=== PATIENT | female | born 1955 | race African-American/Black ===

== ENCOUNTER 2017-10-13 19:00 | Emergency (ER) | payer BC, OTHER ==
--- NOTE | 2017-10-13 19:48 | ER Document Report ---
HPI - HPI Patient complains to provider of: left face rash Onset: Last week Onset/Duration: Gradual Pain Level: 2 Context: 62 yo female scratched left cheek at work on sign, used antibiotic ointment, started to itch and swell. Went to urgent care, changed to bacitracin zinc and it got much worse with itch and swelling. Did scratch it at night. No fever. Associated Symptoms: None Exacerbated by: Other - scratching Relieved by: Denies Similar symptoms previously: No Recently seen / treated by doctor: Yes - ROS ROS below otherwise negative: Yes Systems Reviewed and Negative: Yes All other systems reviewed and negative - REPRODUCTIVE Reproductive: DENIES: : Past Medical History - General Information source: Patient - Social History Smoking Status: Current Every Day Smoker Frequency of alcohol use: Occasional Drug Abuse: None Lives with: Family Family History: Reviewed & Not Pertinent Patient has suicidal ideation: No Patient has homicidal ideation: No - Medical History Medical History: Negative Renal/ Medical History: Denies: Hx Peritoneal Dialysis Surgical Hx: Negative - Immunizations Hx Diphtheria, Pertussis, Tetanus Vaccination: Yes - 03/31/12 Vertical Provider Document - CONSTITUTIONAL Agree With Documented VS: Yes Exam Limitations: No Limitations General Appearance: No Apparent Distress - INFECTION CONTROL TRAVEL OUTSIDE OF THE [place] IN LAST 30 DAYS: No - HEENT HEENT: Normocephalic Notes: left cheek swelling, pink, tiny vesicular, weeping rash, itch more than hurt. No nodes. Impetigo versus allergic contact dermatitis. - NECK Neck: Supple. negative: Lymphadenopathy-Left, Lymphadenopathy-Right - RESPIRATORY Respiratory: Breath Sounds Normal, No Respiratory Distress - CARDIOVASCULAR Cardiovascular: Regular Rate, Regular Rhythm - MUSCULOSKELETAL/EXTREMETIES Musculoskeletal/Extremeties: MAEW - NEURO Level of Consciousness: Awake, Alert - DERM Integumentary: Warm, Dry, Rash - see above Course - Vital Signs Vital signs: Temp Pulse Resp BP Pulse Ox 98.7 F 87 18 118/71 100 10/13/17 19:21 10/13/17 19:21 10/13/17 19:21 10/13/17 19:21 10/13/17 19:21 Discharge - Discharge Clinical Impression: Impetigo Contact dermatitis Qualifiers: Contact dermatitis type: allergic Contact dermatitis trigger: other chemical product Qualified Code(s): L23.5 - Allergic contact dermatitis due to other chemical products Condition: Good Disposition: HOME, SELF-CARE Instructions: Contact Dermatitis ([facility]), Cephalexin ([facility]), Corticosteroid Medication ([facility]), Use of Diphenhydramine, Impetigo ([facility]) Additional Instructions: no lotions or creams on skin prednisone for inflmamation and allergy keflex for skin infection to er if worse Prescriptions: Cephalexin Monohydrate [Keflex 500 mg Capsule] 500 mg PO QID #28 capsule Prednisone [Deltasone 10 mg Tablet] 10 mg PO ASDIR PRN #21 tablet PRN Reason: Forms: Return to Work
[2017-10-13] MEDS ORDERED: CEPHALEXIN 500 MG CAPSULE PO ONE (20:05)
[2017-10-13] MEDS ORDERED: PREDNISONE 20 MG TABLET PO ONE (20:05)
[2017-10-13 20:32] VITALS: BP 124/78
== END 2017-10-13 20:28 | disposition home or self-care (01) ==
LOC: ER 19:00
DX: L01.00 Impetigo, unspecified (principal); L23.5 Allergic contact dermatitis due to other chemical products; F17.200 Nicotine dependence, unspecified, uncomplicated
CPT/HCPCS: 99283; J7512

== ENCOUNTER 2020-06-01 08:15 | Emergency (ER) | payer MEDICARE, OTHER ==
[2020-06-01] MEDS ORDERED: PREDNISONE 20 MG TABLET PO ONE (09:43)
[2020-06-01 10:11] VITALS: BP 155/86
--- NOTE | 2020-06-03 08:17 | ER Document Report ---
Entered by SHUBHAM KINNEY SCRIBE 06/01/20912 Acting as scribe for:BHAVIK LOVETT MD ED General - General Chief Complaint: Rash Stated Complaint: RASH Time Seen by Provider: 06/01/20 09:10 Primary Care Provider: ANALIA NAVARRO NP [Primary Care Provider] - Follow up as needed Mode of Arrival: Ambulatory Information source: Patient Notes: This 65 year old female patient presents to the emergency department today with complaints of a diffuse dry scaly rash since the middle of April. Patient reports she was outside cutting grass which she has done for years, she began sweating profusely despite it not being hot outside. Patient reports that she went inside to cool off, jumped in the shower, and as soon as the water hit her skin and "burned". Patient reports that she had to pat her skin dry as the towel irritated the skin. Patient went to an urgent care on 05/03 and was started on a prednisone 60 mg for 3 days, 40 mg for 3 days, and 20 mg for 3 days. The rash has gotten worse since onset but did improve on the steroids. She has an appointment TRAVEL OUTSIDE OF THE [place] IN LAST 30 DAYS: No - Related Data Allergies/Adverse Reactions: No Known Allergies Allergy (Verified 10/13/17 19:02) Past Medical History - General Information source: Patient - Social History Smoking Status: Smoker,Current Status Unk Frequency of alcohol use: None Drug Abuse: None Lives with: Family Family History: Reviewed & Not Pertinent GI Medical History: Reports: Hx Ulcer Surgical Hx: Negative - Immunizations Hx Diphtheria, Pertussis, Tetanus Vaccination: Yes - 03/31/12 Review of Systems - Review of Systems Constitutional: No symptoms reported EENT: No symptoms reported Cardiovascular: No symptoms reported Respiratory: No symptoms reported Gastrointestinal: No symptoms reported Genitourinary: No symptoms reported Female Genitourinary: No symptoms reported Musculoskeletal: No symptoms reported Skin: See HPI, Change in color, Dryness Hematologic/Lymphatic: No symptoms reported Neurological/Psychological: No symptoms reported -: Yes All other systems reviewed and negative Physical Exam - Vital signs Vitals: Temp Pulse Resp BP Pulse Ox 98.3 F 98 16 128/73 H 100 06/01/20 08:21 06/01/20 08:21 06/01/20 08:21 06/01/20 08:21 06/01/20 08:21 - Notes Notes: Physical Exam: General: Alert, appears well. HEENT: Normocephalic. Atraumatic. PERRL. Extraocular movements intact. Oropharynx clear. Neck: Supple. Non-tender. Respiratory: No respiratory distress. Clear and equal breath sounds bilaterally. Cardiovascular: Regular rate and rhythm. Abdominal: Normal Inspection. Non-tender. No distension. Normal Bowel Sounds. Back: No gross abnormalities. Extremities: Moves all four extremities. Upper extremities: Normal inspection. Normal ROM. Lower extremities: Normal inspection. No edema. Normal ROM. Neurological: Normal cognition. AAOx4. Normal speech. Psychological: Normal affect. Normal Mood. Skin: Skin is diffusely dry and scaly consistent with eczema. There are round discoid lumps of dry skin on posterior neck. Course - Vital Signs Vital signs: Temp Pulse Resp BP Pulse Ox 98.4 F 86 16 155/86 H 100 06/01/20 10:08 06/01/20 10:08 06/01/20 10:08 06/01/20 10:08 06/01/20 10:08 Discharge - Discharge Clinical Impression: Eczema Qualifiers: Eczema type: unspecified Qualified Code(s): L30.9 - Dermatitis, unspecified Condition: Stable Disposition: HOME, SELF-CARE Additional Instructions: Your evaluation today suggest that you are suffering from some type of eczema. It is unclear if this was something triggered by a chemical irritant. You report that your skin did improve while you are on prednisone, but has worsened since finishing the prednisone. 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 Use a moisturizing lotion in your skin at least 3 times daily. Pick something that does not have any chemicals that could be irritating the skin. Follow-up with your dermatology appointment in 10 days as planned. RETURN TO THE EMERGENCY ROOM IF ANY NEW OR WORSENING SYMPTOMS. Prescriptions: Prednisone [Deltasone 20 mg Tablet] 20 mg PO ASDIR PRN #20 tablet PRN Reason: Referrals: ANALIA NAVARRO, DRY PLACER MACHINE OPERATOR [Primary Care Provider] - Follow up as needed I personally performed the services described in the documentation, reviewed and edited the documentation which was dictated to the scribe in my presence, and it accurately records my words and actions.
== END 2020-06-01 10:10 | disposition home or self-care (01) ==
LOC: ER 08:15
DX: L30.9 Dermatitis, unspecified (principal)
CPT/HCPCS: 99283; J7512